=== PATIENT | male | born 1995 ===

== ENCOUNTER 2017-10-29 06:58 | Day surgery (SDC) | payer BC ==
[~2017-10-29 06:58] MED LIST: Lactated Ringers 1,000 ML IV SCH; Lidocaine 1%/Sod Bicarbonate in NS 8.4% 1 ML Syringe IDERM PRN; Sodium Chloride 0.9% 10 ML Syringe FLUSH PRN
[2017-10-29] MEDS ORDERED: Propofol 200 MG/20 ML SDV ONE (07:09)
[2017-10-29] MEDS ORDERED: fentaNYL 100 MCG/2 ML SDV ONE (07:09)
--- NOTE | 2017-10-29 07:26 | PCM.PREANE ---
Preanesthetic Assessment - Procedure Proposed Procedure: Diagnostic EGD - Anesthesia/Transfusion/Family Hx Anesthesia History: Prior Anesthesia Without Reaction Family History of Anesthesia Reaction: No Transfusion History: No Prior Transfusion(s) - Review of Systems General: No Symptoms Pulmonary: No Symptoms Cardiovascular: No Symptoms Gastrointestinal: Other (GERD) Neurological: No Symptoms Other: Reports: None - Physical Assessment NPO Status Date: 10/28/17 NPO Status Time: 22:00 Pulse: 79 O2 Sat by Pulse Oximetry: 98 Respiratory Rate: 16 Blood Pressure: 137/80 Temperature: 36.6 C Height: 1.75 m Weight: 97.069 kg ASA Class: 2 Mental Status: Alert & Oriented x3 Airway Class: Mallampati = 3 Dentition: Reports: Normal Dentition Thyro-Mental Finger Breadths: 3 Mouth Opening Finger Breadths: 3 ROM/Head Extension: Full Lungs: Clear to Auscultation, Normal Respiratory Effort Cardiovascular: Regular Rate, Regular Rhythm - Allergies Allergies/Adverse Reactions: Allergies Allergy/AdvReac Type Severity Reaction Status Date / Time No Known Allergies Allergy Verified 10/28/17 12:19 - Blood Blood Available: No Product(s) Available: None - Anesthesia Plan Pre-Op Medication Ordered: None - Acknowledgements Anesthesia Type Planned: MAC Pt an Appropriate Candidate for the Planned Anesthesia: Yes Alternatives and Risks of Anesthesia Discussed w Pt/Guardian: Yes Pt/Guardian Understands and Agrees with Anesthesia Plan: Yes PreAnesthesia Questionnaire - Past Health History Medical/Surgical History: Denies Medical/Surgical History HEENT History: Reports: None Cardiovascular History: Reports: Other (See Below) Other Cardiovascular History: chestwall pain Respiratory History: Reports: None Gastrointestinal History: Reports: GERD, Other (See Below) Other Gastrointestinal History: epigastric pain Genitourinary History: Reports: None DEPUTY GENERAL COUNSEL History: Reports: None Musculoskeletal History: Reports: Other (See Below) Other Musculoskeletal History: rib pain Neurological History: Reports: None Psychiatric History: Reports: None Endocrine/Metabolic History: Reports: None Hematologic History: Reports: None Immunologic History: Reports: None Oncologic (Cancer) History: Reports: None Dermatologic History: Reports: Other (See Below) Other Dermatologic History: rash, tinea crusis, tinea pedis - Past Surgical History Head Surgeries/Procedures: Reports: None HEENT Surgical History: Reports: None Cardiovascular Surgical History: Reports: None Respiratory Surgical History: Reports: None GI Surgical History: Reports: None Female Surgical History: Reports: None Male Surgical History: Reports: None Endocrine Surgical History: Reports: None Neurological Surgical History: Reports: None Musculoskeletal Surgical History: Reports: None Oncologic Surgical History: Reports: None Dermatological Surgical History: Reports: None - SUBSTANCE USE Smoking Status *Q: Former Smoker Second Hand Smoke Exposure: No Recreational Drug Use History: No - HOME MEDS Home Medications: Home Meds . [No Known Home Meds] 04/23/15 [History] - CURRENT (IN HOUSE) MEDS Current Meds: Current Medications Lactated Ringer's (Ringers, Lactated) 1,000 mls @ 125 mls/hr IV ASDIRECTED URVASHI Stop: 10/29/17 23:00 Lidocaine/Sodium Bicarbonate (Buffered Lidocaine 1% In Ns 8.4%) 0.25 ml IDERM ONETIME PRN PRN Reason: Prior to IV Start Stop: 10/29/17 18:00 Sodium Chloride (Saline Flush) 10 ml FLUSH ASDIRECTED PRN PRN Reason: Keep Vein Open Stop: 10/29/17 18:00 Discontinued Medications Fentanyl (Sublimaze) Confirm Administered Dose 100 mcg .ROUTE .STK-MED ONE Stop: 10/29/17 07:10 Propofol (Diprivan 20 Ml) Confirm Administered Dose 200 mg .ROUTE .STK-MED ONE Stop: 10/29/17 07:10
--- NOTE | 2017-10-29 08:15 | PCM.OPNOTE ---
- General Post-Op/Procedure Note Date of Surgery/Procedure: 10/29/17 Operative Procedure(s): Esophagogastroduodenoscopy with GE junction gastric and antral biopsies Findings: Normal upper endoscopy Pre Op Diagnosis: Dyspepsia Post-Op Diagnosis: Same Anesthesia Technique: MAC, Moderate Sedation Primary Surgeon: Ramin Mendoza Pathology: GE junction gastric and antral biopsies EBL in mLs: 0 Complications: None Condition: Good Free Text/Narrative:: After adequate IV sedation and analgesia was obtained the patient was placed on his left side with monitoring. Through a bite-block lubricated upper endoscope was inserted into the esophagus then advanced under direct vision to the stomach. Additional air was given here. The antrum and pylorus was identified followed by passage of the endoscope into the second part of the duodenum. This structure as well as the pylorus was endoscopically normal with no mass lesions or inflammatory changes. The antrum was endoscopically normal as well but because of his history I took 2 random biopsies were histologic review. In the retroflexed view the fundic and cardiac regions were normal. There was no hiatal hernia. The body of the stomach was unremarkable with normal rugal folds. Gastric motility was grossly normal as well. A random biopsy in the stomach was taken for review. I then withdrew the scope to the GE junction which was sharp and about 30 cm from the incisors. There were no inflammatory changes in this area that were seen. Random biopsy was taken as well. The body of the esophagus was endoscopically normal. The vocal cords were briefly visualized on extubation and were normal. Air was removed as I finished the procedure. Photographs were taken for the patient and for the medical record.
--- NOTE | 2017-10-29 08:17 | PCM48HPAN ---
Post Anesthesia Note - EVALUATION WITHIN 48HRS OF ANESTHETIC Vital Signs in Normal Range: Yes Patient Participated in Evaluation: Yes Respiratory Function Stable: Yes Airway Patent: Yes Cardiovascular Function Stable: Yes Hydration Status Stable: Yes Pain Control Satisfactory: Yes Nausea and Vomiting Control Satisfactory: Yes Mental Status Recovered: Yes
[2017-10-29 08:21] VITALS: BP 125/71
== END 2017-10-29 08:34 | disposition home or self-care (01) ==
LOC: JD.SDS 06:58
PROVIDERS: ATTEND Surgery
DX: R10.13 Epigastric pain (principal); K21.9 Gastro-esophageal reflux disease without esophagitis; Z87.891 Personal history of nicotine dependence
CPT/HCPCS: 43239; J3010; J7120; 00731; J2704